=== PATIENT | female | born 1970 | race Caucasian/White ===

== ENCOUNTER 2020-01-27 11:58 | Emergency (ER) | payer OTHER ==
--- NOTE | 2020-01-27 13:03 | EDM.PDOC ---
ED HPI GENERAL MEDICAL PROBLEM - General Chief Complaint: Allergic Reaction Stated Complaint: RIGHT FACE SWOLLEN Time Seen by Provider: 01/27/20 12:47 Source of Information: Reports: Patient History Limitations: Reports: No Limitations - History of Present Illness INITIAL COMMENTS - FREE TEXT/NARRATIVE: 49-year-old female with no significant health problems other than hypertension presents to the emergency department with right facial swelling. It started last night after a bug bite while watching fireworks. 1 week ago the patient had a bee sting in the same area. She has a history of hayfever but denies asthma or eczema. She has tried Benadryl today which causes drowsiness and quiets her itching. She was concerned about an infection. She denies pain or fever. 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: - Infectious Disease History Infectious Disease History: Reports: Chicken Pox Social & Family History - Tobacco Use Smoking Status *Q: Never Smoker - Caffeine Use Caffeine Use: Reports: Coffee, Soda - Recreational Drug Use Recreational Drug Use: No ED ROS ALLERGIC REACTION - Review of Systems Review Of Systems: See Below Constitutional: Denies: Fever, Chills, Diaphoresis HEENT: Denies: Eye Discharge, Eye Pain Respiratory: Denies: Shortness of Breath, Wheezing Skin: Reports: Other (Right facial swelling) Psychiatric: Reports: No Symptoms ED EXAM GENERAL NO PERIP PULSE - Physical Exam Exam: See Below Exam Limited By: No Limitations General Appearance: Alert, WD/WN, No Apparent Distress Eye Exam: Right Eye: Other (Right eye shows normal conjunctiva. Pupils are equal and reactive. There is no eye drainage.) Ears: Normal External Exam Nose: Normal Inspection Throat/Mouth: Normal Inspection, Normal Oropharynx Respiratory/Chest: No Respiratory Distress, Normal Breath Sounds. No: Wheezing GI/Abdominal: Soft Skin Exam: Other (She has diffuse swelling over the right side of her face. There is no fever or tenderness on palpation. Eyelids both upper and lower are swollen. She has a small bug bite over the right zygoma. The redness is diffuse.) Course - Vital Signs Text/Narrative:: This patient has a localized bug bite reaction in the right side of her face. Is no signs of cellulitis or erysipelas. She will use Benadryl and hydrocortisone cream to reduce the swelling. Alternatively she can use nonsedating antihistamines during the day for itching. Cool compresses will help reduce the swelling and discomfort. The patient will follow-up with her primary care provider. She return here as needed. Last Recorded V/S: Last Vital Signs Temp 35.5 C L 01/27/20 12:34 Pulse 86 01/27/20 12:34 Resp 16 01/27/20 12:34 BP 133/87 01/27/20 12:34 Pulse Ox 95 01/27/20 12:34 Departure - Departure Time of Disposition: 12:58 Disposition: Home, Self-Care 01 Condition: Good Clinical Impression: Bug bite of face without infection - Discharge Information *PRESCRIPTION DRUG MONITORING PROGRAM REVIEWED*: No *COPY OF PRESCRIPTION DRUG MONITORING REPORT IN PATIENT JR: No Referrals: PCP,None [Primary Care Provider] - Additional Instructions: Use cool compresses on the right side of her face as needed for swelling. Use Benadryl for itching. Consider using nonsedating antihistamine such as Zyrtec or Claritin during the daytime for itching. Try [id number] hydrocortisone cream as needed itching. Follow-up with your doctor developed pain, fever or if you have concerns. Sepsis Event Note (ED) - Evaluation Sepsis Screening Result: No Definite Risk - Focused Exam Vital Signs: Vital Signs Temp Pulse Resp BP Pulse Ox 01/27/20 12:34 35.5 C L 86 16 133/87 95 01/27/20 12:26 35.5 C L 86 16 133/87 95
== END 2020-01-27 13:11 | disposition home or self-care (01) ==
LOC: JP.ED 11:58
DX: S00.86XA Insect bite (nonvenomous) of other part of head, initial encounter (principal); I10 Essential (primary) hypertension; Z79.899 Other long term (current) drug therapy; W57.XXXA Bitten or stung by nonvenomous insect and other nonvenomous arthropods, initial encounter
CPT/HCPCS: 99282; 99283